=== PATIENT | male | born 1980 | race Hispanic/Latino ===

== ENCOUNTER 2025-03-01 20:19 | Emergency (ER) | payer OTHER, SELFPAY ==
[2025-03-01 20:28] VITALS: BP 185/98
[2025-03-01] MEDS: KEFLEX 500 MG PO (23:02)
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
[2025-03-01] MEDS: ADACEL 0.5 ML IM (23:03)
== END 2025-03-01 23:13 | disposition home or self-care (01) ==
LOC: EMR 20:19
PROVIDERS: EMERGENCY PHYSICIAN Emergency Medicine; FAMILY PHYSICIAN Family Medicine
DX: T25.212A Burn of second degree of left ankle, initial encounter (principal); T23.272A Burn of second degree of left wrist, initial encounter; X13.1XXA Other contact with steam and other hot vapors, initial encounter; Y93.G3 Activity, cooking and baking; E10.9 Type 1 diabetes mellitus without complications; I10 Essential (primary) hypertension; Z23 Encounter for immunization
CPT/HCPCS: 99283; 90471; 90715

== ENCOUNTER → 2025-03-14 12:31 | Outpatient (REF) | payer OTHER, SELFPAY | LOC: WOUND 12:31 | PROVIDERS: ATTENDING PHYSICIAN Surgery | DX: T25.222A Burn of second degree of left foot, initial encounter (principal); E11.9 Type 2 diabetes mellitus without complications; X12.XXXA Contact with other hot fluids, initial encounter | CPT/HCPCS: 99203 ==